=== PATIENT | female | born 1945 | race Two or more races ===

== ENCOUNTER 2022-07-27 20:57 | Emergency (ER) | payer OTHER ==
[~2022-07-27] VITALS: Ht 157.5 cm; Wt 53.5 kg
[2022-07-27] MEDS ORDERED: MEMANTINE HCL E28 MG PO (21:39)
[2022-07-27] MEDS ORDERED: LISINOPRIL5 MG PO (21:39)
== END 2022-07-28 17:33 | disposition home or self-care (01) ==
LOC: ER 20:57
DX: U07.1 COVID-19 (principal); E86.0 Dehydration; G30.8 Other Alzheimer's disease; F02.80 Dementia in other diseases classified elsewhere, unspecified severity, without behavioral disturbance, psychotic disturbance, mood disturbance, and anxiety; S05.11XD Contusion of eyeball and orbital tissues, right eye, subsequent encounter; W18.39XA Other fall on same level, initial encounter; Y93.89 Activity, other specified; Y92.018 Other place in single-family (private) house as the place of occurrence of the external cause